=== PATIENT | female | born 1965 | race Caucasian/White ===

== ENCOUNTER → 2023-12-11 | Outpatient (CLI) | payer OTHER ==
--- NOTE | 2023-12-11 15:53 | CT ---
EXAMINATION TYPE: CT angio chest CT DLP: 255.2 mGycm, Automated exposure control for dose reduction was used. DATE OF EXAM: 12/11/2023 3:22 PM COMPARISON: None CLINICAL INDICATION:Female, 58 years old with history of R79.1 ABN COAGULATION PROFILE; SOB, HTN TECHNIQUE/CONTRAST: CTA scan of the thorax is performed with IV Contrast, patient injected with 100 mL of Isovue 370, MIP images are created and reviewed these are created on a separate workstation.. FINDINGS: Pulmonary Artery: There is no evidence for a filling defect within the pulmonary vasculature to sugge st acute pulmonary embolism. The pulmonary artery is of normal size. Lungs/Pleura: No evidence of focal consolidation, pleural effusion or pneumothorax. Airway: Large airways are patent. Heart: Heart is within normal limits for size. Vasculature: No evidence of aortic aneurysm. Mediastinum: No gross evidence of adenopathy. Musculoskeletal: No acute osseous abnormalities Soft Tissues/lymph nodes: Bilateral breast implants appear intact. Lower neck: No significant findings. Upper Abdomen: Nonobstructing right renal calculus measuring up to 2 mm. No left renal calculi visual ized. IMPRESSION: No evidence of pulmonary embolism.
== END | disposition home or self-care (01) ==
LOC: RADCTMAIN 14:07
PROVIDERS: ATTEND Internal Medicine
DX: R79.1 Abnormal coagulation profile (principal); I10 Essential (primary) hypertension; R06.02 Shortness of breath
CPT/HCPCS: 71275; Q9967

== ENCOUNTER → 2023-12-12 | Outpatient (CLI) | payer OTHER ==
--- NOTE | 2023-12-12 15:51 | US ---
EXAMINATION TYPE: US venous doppler duplex LE BI DATE OF EXAM: 12/12/2023 3:34 PM COMPARISON: NONE CLINICAL INDICATION: Female, 58 years old with history of R79.1 Abnormal coagulation profile; Elevate d D dimer SIDE PERFORMED: Bilateral TECHNIQUE: The lower extremity deep venous system is examined utilizing real time linear array sonog purvi with graded compression, doppler sonography and color-flow sonography. VESSELS IMAGED: Common Femoral Vein Deep Femoral Vein Greater Saphenous Vein * Femoral Vein Popliteal Vein Small Saphenous Vein * Proximal Calf Veins (* superficial vessels) Grayscale, color doppler, spectral doppler imaging performed of the deep veins of the lower extremiti es. There is normal flow, compressibility, vascular waveforms. Right Leg: Negative for DVT Left Leg: Negative for DVT IMPRESSION: No deep venous thrombosis of the bilateral lower extremities.
--- NOTE | 2023-12-12 15:51 | US ---
EXAMINATION TYPE: US kidneys/renal and bladder DATE OF EXAM: 12/12/2023 COMPARISON: NONE CLINICAL INDICATION: Female, 58 years old with history of N18.2 Chronic kidney disease stage 2; CKD 2 EXAM MEASUREMENTS: Right Kidney: 9.7 x 4.0 x 3.4 cm Left Kidney: 10.8 x 4.6 x 3.6 cm Right Kidney: No hydronephrosis or masses seen Left Kidney: No hydronephrosis or masses seen Bladder: Anechoic Bilateral Jets seen: no There is no evidence for hydronephrosis at this point in time. No nephrolithiasis is seen. No yi s are identified. Cortical medullary differentiation is maintained bilaterally. The urinary bladder is anechoic. Bilateral ureteral jets are not seen. IMPRESSION: No ultrasound evidence for obstructive uropathy.
== END | disposition home or self-care (01) ==
LOC: RADUSWWP 15:02
PROVIDERS: ATTEND Internal Medicine
DX: N18.2 Chronic kidney disease, stage 2 (mild) (principal); R79.1 Abnormal coagulation profile
CPT/HCPCS: 76770; 93970

== ENCOUNTER → 2023-12-19 | Outpatient (CLI) | payer OTHER ==
--- NOTE | 2023-12-20 07:57 | CA ---
Transthoracic Echo Report Name: Lucia Sandra Age: 58 Gender: F : 1965 Exam Date: 12/19/2023 13:56 Exam Location: [facility] Ht (in): 65 Wt (lb): 165 Ordering Physician: Ankush Ware MD Attending/Referring Phys: Ankush Ware MD Guest Relations Coordinator Laila Jensen RDCS Procedure CPT: Indications: R06.09 Other forms of dyspnea Cardiac Hx: Technical Quality: Fair Contrast 1: Total Dose (mL): Contrast 2: Total Dose (mL): MEASUREMENTS (Male / Female) Normal Values 2D ECHO LV Diastolic Diameter PLAX 3.5 cm 4.2 - 5.9 / 3.9 - 5.3 cm LV Systolic Diameter PLAX 2.4 cm IVS Diastolic Thickness 1.1 cm 0.6 - 1.0 / 0.6 - 0.9 cm LVPW Diastolic Thickness 1.1 cm 0.6 - 1.0 / 0.6 - 0.9 cm LV Relative Wall Thickness 0.6 RV Internal Dim ED PLAX 2.6 cm LA Systolic Diameter LX 3.2 cm 3.0 - 4.0 / 2.7 - 3.8 cm LV Diastolic Volume MOD 4C 79.8 cm??? LV Systolic Volume MOD 4C 33.8 cm??? LV Ejection Fraction MOD 4C 57.7 % LV Cardiac Index MOD 4C 1624.3 cm???/min???m??? LV Diastolic Length 4C 8.3 cm LV Systolic Length 4C 6.6 cm LV Diastolic Volume MOD 2C 82.4 cm??? LV Systolic Volume MOD 2C 27.6 cm??? LV Ejection Fraction MOD 2C 66.6 % LV Cardiac Index MOD 2C 1936.2 cm???/min???m??? LV Diastolic Length 2C 9.0 cm LV Systolic Length 2C 7.2 cm LA Volume 40.5 cm??? 18 - 58 / 22 - 52 cm??? LA Volume Index 21.7 cm???/m??? 16 - 28 cm???/m??? M-MODE Aortic Root Diameter MM 2.7 cm AV Cusp Separation MM 2.0 cm DOPPLER AV Peak Velocity 145.2 cm/s AV Peak Gradient 8.4 mmHg MV Area PHT 2.6 cm??? Mitral E Point Velocity 57.5 cm/s Mitral A Point Velocity 63.3 cm/s Mitral E to A Ratio 0.9 MV Deceleration Time 292.4 ms TR Peak Velocity 230.9 cm/s TR Peak Gradient 21.3 mmHg Right Ventricular Systolic Press 26.3 mmHg FINDINGS Left Ventricle Left ventricular ejection fraction is estimated at 55-60 %. Small left ventricular cavity. Mildly increased septal wall thickness. Mildly increased posterior wall thickness. No obvious regional wall motion abnormalities. Right Ventricle Normal right ventricular size and function. Right ventricular systolic pressure within normal limits. Right Atrium Normal right atrial size. No right atrial thrombus or mass seen. Left Atrium Normal left atrial size. No left atrial thrombus or mass present. Mitral Valve Structurally normal mitral valve. Trace mitral regurgitation. No evidence for mitral valve prolapse. No mitral stenosis. Aortic Valve Trileaflet aortic valve. Thickened aortic valve without stenosis. Tricuspid Valve Structurally normal tricuspid valve. Mild tricuspid regurgitation. Pulmonic Valve Structurally normal pulmonic valve. Trace pulmonic regurgitation. Pericardium No pericardial or pleural effusion. Aorta Normal size aortic root and proximal ascending aorta. CONCLUSIONS Normal biventricular dimension and systolic function No significant valvular abnormalities noted Previewed by: Dr. Donny Weir MD (Electronically Signed) Final Date: 20 December 2023 07:56
== END | disposition home or self-care (01) ==
LOC: RADECHMAIN 13:47
PROVIDERS: ATTEND Internal Medicine
DX: R06.09 Other forms of dyspnea (principal)
CPT/HCPCS: 93306

== ENCOUNTER → 2023-12-27 | Outpatient (CLI) | payer OTHER ==
--- NOTE | 2024-02-04 17:13 | P.CEMON ---
Mobile cardiac outpatient telemetry Normal heart rates, ranging from 49-125 beats a minute Average heart rates of 73 bpm No sustained or nonsustained arrhythmias
--- NOTE | 2024-02-26 13:23 | EM ---
Mobile cardiac outpatient telemetry Normal heart rates, ranging from 49-125 beats a minute Average heart rates of 73 bpm No sustained or nonsustained arrhythmias Additional CC's: Ankush HOLT
== END | disposition home or self-care (01) ==
LOC: RADECHMAIN 08:23
PROVIDERS: ATTEND Internal Medicine
DX: R06.09 Other forms of dyspnea (principal)
CPT/HCPCS: 93270